=== PATIENT | male | born 1955 | race Caucasian/White ===

== ENCOUNTER 2024-07-02 17:29 | Emergency (ER) | payer BC ==
[~2024-07-02] VITALS: Ht 190.5 cm; Wt 119.7 kg
[~2024-07-02 17:29] MED LIST: ADVAIR 250-501 EACH INH; ALBUTEROL2.5 MG/3 M INH; SINGULAIR10 MG PO
[2024-07-02] MEDS ORDERED: SKYRIZI PE150 MG/1 M SQ (18:00)
[2024-07-02] MEDS ORDERED: XARELTO10 MG PO (18:00)
[2024-07-02] MEDS ORDERED: OXYCODONE HCL5 MG PO (18:00)
[2024-07-02] MEDS ORDERED: BACLOFEN10 MG PO (18:00)
[2024-07-02] MEDS ORDERED: METHOCARBAMOL500 MG (18:01)
[2024-07-02] MEDS ORDERED: IBLOOD GLUCOSE TEST STRIP 1 EA TEST XX ONE (18:45)
[2024-07-02 19:05] LABS: BASOPHILS 0.6 % (0-2); EOSINOPHILS 4.8 % (0-6); HEMOGLOBIN 10.8 g/dL (12.0-18.0); MCH 31.1 (27-36); MCHC 34.8 g/dl (30-36); MCV 89.2 fl (81-99); MONOCYTES 9.1 % (0-12); NEUTROPHILS 71.5 % (39-80); PLATELET COUNT 375 K/uL (140-440); RBC 3.47 M/ul (4.3-5.7); RDW 13.8 (10.5-15.0)
[2024-07-02 19:19] LABS: ALBUMIN 2.7 g/dL (3.4-5.0); ALBUMIN/GLOBULIN RATIO 0.64 (1.1-2.4); ANION GAP 13.7 (7-21); BILIRUBIN, TOTAL 0.6 ng/dL (0.2-1.0); BUN/CREATININE RATIO 13.79 (6.0-28.6); CALCIUM 8.7 mg/dL (8.5-10.1); CREATININE, SERUM 1.16 mg/dL (0.70-1.30); MAGNESIUM 2.3 mg/dL (1.8-2.4); POTASSIUM 4.7 mmol/L (3.5-5.1); PROTEIN, TOTAL 6.9 g/dL (6.4-8.2)
[2024-07-02] MEDS ORDERED: LORazepam 2 MG/ML VIAL IV ONE (19:45)
[2024-07-02 21:05] VITALS: BP 125/66
[2024-07-02] MEDS ORDERED: CHLORPROMAZINE25 MG PO (21:06)
[2024-07-02] MEDS ORDERED: ATIVAN1 MG PO (21:06)
[2024-07-02] MEDS ORDERED: LORazepam 1 MG HOME.PACK PO ONE (21:15)
--- NOTE | 2024-07-02 22:07 | EKG ---
[facility] [address] [facility] [place] [place] [address] Signed Normal sinus rhythm Normal ECG No previous ECGs available Confirmed by Jv Corona MD () on 07/02/2024 10:07:16 PM Electronically Signed By: JV CORONA MD 07/02/242206 PATIENT NAME: SHAHIDA MULLINS Electrocardiogram DATE OF : 59 PHYSICIAN: JV CORONA MD REPORT #: [id number] REPORT IS CONFIDENTIAL AND NOT TO BE RELEASED WITHOUT AUTHORIZATION
== END 2024-07-02 21:15 | disposition home or self-care (01) ==
LOC: ED 17:29
PROVIDERS: Emergency Medicine
DX: R06.6 Hiccough (principal); J45.909 Unspecified asthma, uncomplicated; Z88.8 Allergy status to other drugs, medicaments and biological substances; Z79.899 Other long term (current) drug therapy
CPT/HCPCS: 36415; 71045; 80053; 83735; 84484; 85025; 93005; 93010; 96374; 99284-25; J2060